=== PATIENT | male | born 1990 | race Hispanic/Latino ===

== ENCOUNTER 2023-04-25 16:05 | Emergency (ER) | payer OTHER ==
[~2023-04-25] VITALS: Ht 175.3 cm; Wt 117.9 kg
[2023-04-25 16:57] LABS: BASOPHILS % (AUTO) 0.2 % (0.0-5.0); EOSINOPHILS % (AUTO) 0.1 % (0.0-8.0); LYMPHOCYTES % (AUTO) 20.9 % (21.0-51.0); MEAN CORPUSCULAR HEMOGLOBIN 28.1 pg (27.0-33.0); MEAN CORPUSCULAR HGB CONC 33.9 g/dL (32.0-36.0); MEAN CORPUSCULAR VOLUME 82.9 fL (79-99); MONOCYTES % (AUTO) 8.7 % (3.0-13.0); NEUTROPHILS % (AUTO) 69.6 % (40.0-77.0); PLATELET COUNT (AUTO) 383 K/uL (130-400); RED BLOOD CELL COUNT(AUTO) 5.91 MIL/uL (4.50-6.20); RED CELL DISTRIBUTION WIDTH 13.4 % (11.0-15.5); WHITE BLOOD COUNT (AUTO) 17.2 K/uL (4.8-10.8)
[2023-04-25] MEDS ORDERED: ONDANSETRON 4MG INJ IVP ONE (17:00)
[2023-04-25] MEDS ORDERED: 0.9%NACL 1000ML 1,000 ML IV ONE (17:00)
[2023-04-25 17:14] LABS: ALBUMIN 4.7 g/dL (3.5-5.0); CREATININE 1.1 mg/dL (0.5-1.5); TOTAL PROTEIN, SERUM 8.3 g/dL (6.0-8.3)
[2023-04-25] MEDS ORDERED: POTASSIUM BICARB/CIT AC 25 MEQ TABLET.EFF PO ONE (17:30)
[2023-04-25] MEDS ORDERED: IOHEXOL 350 MG/ML 100ML INFUS..BTL IV ONE (18:06)
[2023-04-25] MEDS ORDERED: HYDROMORPHONE 1 MG INJ IVP ONE (18:30)
[2023-04-25 19:06] LABS: APPEARANCE,URINE CLEAR (CLEAR); BILIRUBIN,URINE NEGATIVE (NEGATIVE); COLOR,URINE YELLOW (YELLOW); GLUCOSE, URINE (UA) NEGATIVE (NEGATIVE); KETONES,URINE NEGATIVE (NEGATIVE); LEUKOCYTE ESTERASE ,URINE NEGATIVE Leu/uL (NEGATIVE); NITRATE,URINE NEGATIVE (NEGATIVE); OCCULT BLOOD,URINE NEGATIVE (NEGATIVE); PROTEIN,URINE 30 mg/dL (NEGATIVE)
[2023-04-25 19:13] LABS: AMPHET/METH SCREEN,URINE NEGATIVE (NEGATIVE); BARBITURATE SCREEN, URINE NEGATIVE (NEGATIVE); BENZODIAZEPINES SCREEN,URINE NEGATIVE (NEGATIVE); CANNABINOID SCREEN,URINE POSITIVE (NEGATIVE); COCAINE SCREEN,URINE NEGATIVE (NEGATIVE); OPIATE SCREEN,URINE NEGATIVE (NEGATIVE); PHENCYCLIDINE SCREEN,URINE NEGATIVE (NEGATIVE)
[2023-04-25 19:23] LABS: BACTERIA,URINE RARE /HPF (None Seen); MUCUS,URINE MOD LPF (None Seen); SQUAMOUS EPITHELIAL CELL,UR RARE /HPF (0-2); YEAST,URINE BUDDING FEW /HPF (None Seen)
[2023-04-25] MEDS ORDERED: ONDA-104 PO (20:22)
[2023-04-25 20:57] VITALS: BP 142/96
== END 2023-04-25 21:04 | disposition home or self-care (01) ==
LOC: EDH 16:05
DX: F11.23 Opioid dependence with withdrawal (principal); F41.9 Anxiety disorder, unspecified; Z88.0 Allergy status to penicillin; Z20.822 Contact with and (suspected) exposure to COVID-19
CPT/HCPCS: 99285; 74177; 96374; 87635; 96361; 96375; 80053; 80305; 85025; 87880; 87804 ×2; 81001; 36415; C9803; J1170; J7030; J2405; Q9967